=== PATIENT | male | born 1990 | race Caucasian/White ===

== ENCOUNTER 2019-07-11 12:05 | Emergency (ER) | payer BC ==
[~2019-07-11] VITALS: Ht 180.3 cm; Wt 83.9 kg
[2019-07-11 12:26] VITALS: BP 126/73
[2019-07-11] MEDS ORDERED: TDAP [DIPH/PERTUSSIS/TET] 0.5 ML VIAL IM ONE ×2 (13:00→13:23)
== END 2019-07-11 14:20 | disposition home or self-care (01) ==
LOC: ER 12:11
DX: S39.012A Strain of muscle, fascia and tendon of lower back, initial encounter (principal); S60.811A Abrasion of right wrist, initial encounter; V49.49XA Driver injured in collision with other motor vehicles in traffic accident, initial encounter; Y93.89 Activity, other specified; Y92.413 State road as the place of occurrence of the external cause; Y99.8 Other external cause status
CPT/HCPCS: 90715